=== PATIENT | male | born 1945 | race Caucasian/White ===

== ENCOUNTER 2022-05-26 07:09 | Emergency (ER) | payer MEDICARE ==
[2022-05-26] MEDS ORDERED: Acetaminophen 500 MG TAB ONE (07:49)
== END 2022-05-26 09:04 | disposition home or self-care (01) ==
LOC: MADERS 07:09
DX: S30.0XXA Contusion of lower back and pelvis, initial encounter (principal); E78.00 Pure hypercholesterolemia, unspecified; I10 Essential (primary) hypertension; K21.9 Gastro-esophageal reflux disease without esophagitis; E11.9 Type 2 diabetes mellitus without complications; Z79.899 Other long term (current) drug therapy; Z79.82 Long term (current) use of aspirin; Z79.84 Long term (current) use of oral hypoglycemic drugs; W18.39XA Other fall on same level, initial encounter
CPT/HCPCS: 36416; 70450; 72125; 72131; 93005